=== PATIENT | male | born 1965 | race Caucasian/White ===

== ENCOUNTER → 2016-08-15 | Outpatient (CLI) | payer BC ==
[~2016-08-15] MED LIST: CIPR-255 PO
--- NOTE | 2016-08-15 13:14 | DIAGNOSTIC IMAGING REPORT ---
[facility] CLINICAL HISTORY: PROSTATE CA COMPARISON STUDY: No previous studies for comparison. FINDINGS: There is no pathologic bowel dilatation. There are no calcification suspicious for renal calculi. There are multiple pelvic basin calcifications, likely representing phleboliths. There are small sclerotic lesion left femoral head likely representing a bone island. IMPRESSION: No evidence of pathologic bowel dilatation. Electronically signed by: Roman Maurice M.D. 08/15/2016 1:13 PM Dictated Date/Time: 08/15/2016 1:12 PM
[2016-08-15 13:41] LABS: BLOOD UREA NITROGEN 16 mg/dl (7-18); BUN/CREATININE RATIO 16.9 (10-20); CREATININE 0.97 mg/dl (0.60-1.40)
[2016-08-15 13:45] LABS: PROSTATE SPECIFIC ANTIGEN 0.507 ng/ml (0.000-4.000)
== END | disposition home or self-care (01) ==
LOC: C.RAD 11:27
PROVIDERS: ATTEND Urology
DX: C61 Malignant neoplasm of prostate (principal); N21.1 Calculus in urethra

== ENCOUNTER → 2017-08-01 | Outpatient (CLI) | payer BC ==
--- NOTE | 2017-08-01 10:41 | DIAGNOSTIC IMAGING REPORT ---
KUB HISTORY: N21.1 Urethral colic due to [id number] COMPARISON: [facility] 08/15/2016. FINDINGS: The bowel gas pattern is unremarkable. There are no dilated loops of small bowel to suggest an obstruction. No renal calculi. No ureteral calculi. Calcifications in the deep pelvis likely represent phleboliths. These remain unchanged. Of note, the renal shadows are partially obscured by overlying bowel gas. No pneumoperitoneum or pneumatosis. IMPRESSION: No renal or ureteral stones. Electronically signed by: Fermin Pavon M.D. 08/01/2017 10:39 AM Dictated Date/Time: 08/01/2017 10:38 AM
[2017-08-01 10:52] LABS: BLOOD UREA NITROGEN 14 mg/dl (7-18); CREATININE 1.02 mg/dl (0.60-1.40)
== END | disposition home or self-care (01) ==
LOC: C.RAD 09:29
PROVIDERS: ATTEND Urology
DX: N21.1 Calculus in urethra (principal)